=== PATIENT | female | born 1960 | race Caucasian/White ===

== ENCOUNTER 2020-05-21 08:02 | Emergency (ER) | payer OTHER, SELFPAY ==
[2020-05-21 08:25] VITALS: BP 98/74; PULSE 83; RESP 20; TEMP 36.7; O2SAT 99
--- NOTE | 2020-05-21 08:28 | ED.BACK ---
HPI - Back Pain/Injury General Chief Complaint: Back Pain/Injury Stated Complaint: Right hip pain Time Seen by Provider: 05/21/20 08:31 Source: patient Mode of arrival: ambulatory Limitations: no limitations History of Present Illness HPI Narrative: Jazmine Tello is a 59 yo female with diabetes, anxiety, high cholesterol, who comes to express care with complaints of right lower back pain that started last night after power washing deck for 2 hours. She states that she sat on the chair to rest and was almost unable to get up. Has used ice to her back to be able to get out of bed and move around this morning but pain is still there Related Data Home Medications Medication Instructions Recorded Confirmed ibuprofen 800 mg PO Q6H PRN 05/21/20 05/21/20 insulin degludec [Tresiba 20 unit SUBCUT HS 05/21/20 05/21/20 FlexTouch U-200] insulin glargine U-300 conc 50 unit SUBCUT DAILY 05/21/20 05/21/20 [Toujeo SoloStar U-300 Insulin] metformin 2,000 mg PO DAILY 05/21/20 05/21/20 semaglutide [Ozempic] 0.5 mg SUBCUT WEEKLY 05/21/20 05/21/20 sertraline 100 mg PO DAILY 05/21/20 05/21/20 simvastatin 20 mg PO DAILY 05/21/20 05/21/20 Allergies Allergy/AdvReac Type Severity Reaction Status Date / Time No Known Allergies Allergy Verified 05/21/20 08:47 Review of Systems Review of Systems: Narrative: CONSTITUTIONAL: Denies fever, chills, sweats. EYES: Denies visual changes, redness, discharge. ENT: Denies rhinorrhea, congestion, sore throat, otalgia. CARDIOVASCULAR: Denies chest pain, palpitations, edema. RESPIRATORY: Denies dyspnea, wheezing, cough GASTROINTESTINAL: Denies abdominal pain, nausea, vomiting, diarrhea. GENITOURINARY: Denies dysuria, hematuria, abnormal discharge SKIN: Denies rash or itching. NEUROLOGIC: Denies numbness, or focal weakness. PSYCHIATRIC: Denies anxiety or depression. Right lower back pain PMFSH Family History Family History Other Diabetes mellitus Social History Social History (Updated 05/21/20 @ 08:49 by LÓPEZ Silva Smoking status: Never smoker Alcohol intake: never Comments At time of signature, I agree with nursing past medical, surgical, social and family history. There is no relevant family history pertinent to the presenting complaint. Exam Narrative: Exam Narrative: GENERAL: This is a well-nourished, well-developed patient, in mild distress. HEAD: normocephalic, atraumatic. EYES: Sclera clear/white. Vision is grossly intact. EARS: External ears normal, Hearing grossly intact. NOSE: External nose normal without nasal discharge, THROAT: Not performed NECK: Neck supple, CARDIOVASCULAR: Regular rate and rhythm without murmurs, gallops, or rubs. RESPIRATORY: Clear to auscultation. Breath sounds equal bilaterally. No wheezes, rales, or rhonchi. GASTROINTESTINAL: Abdomen soft, SKIN: warm, intact with no suspicious lesions or rash, good texture and turgor. NEURO: awake, alert, and oriented to person, place and time. There were no obvious focal neurologic abnormalities. Steady gait EXTREMITIES: Normal range of motion. BACK:tender right lumbar area without deformity; pain on touch and with twisting Course Course Emergency Course: Given Toradol for pain in express care Discussed care of sciatica and started on muscle relaxant and high-dose ibuprofen; recommended use of the lidocaine patches if not improved within 5 days and to follow-up with primary care physician Vital Signs Vital signs: Vital Signs Temperature 98.0 F 05/21/20 08:25 Pulse Rate 83 05/21/20 08:25 Respiratory Rate 20 05/21/20 08:25 Blood Pressure 98/74 L 05/21/20 08:25 Pulse Oximetry 99 05/21/20 08:25 Temperature 98.0 F 05/21/20 08:25 Pulse Rate 83 05/21/20 08:25 Respiratory Rate 20 05/21/20 08:25 Blood Pressure 98/74 L 05/21/20 08:25 Pulse Oximetry 99 05/21/20 08:25 MDM - Back Pain/Injury Diffe
[2020-05-21] MEDS: KETOROLAC (*BKC) 60 MG/2 ML VIAL IM (08:45)
== END 2020-05-21 09:10 | disposition home or self-care (01) ==
PROVIDERS: Emergency Provider Nurse Practitioner; PCP Family Medicine
DX: M54.31 Sciatica, right side (principal); E11.9 Type 2 diabetes mellitus without complications; F41.9 Anxiety disorder, unspecified; Z79.1 Long term (current) use of non-steroidal anti-inflammatories (NSAID); Z79.4 Long term (current) use of insulin
CPT/HCPCS: 96372; 99213; G0463; J1885

== ENCOUNTER 2021-02-25 14:13 | Emergency (ER) | payer OTHER, SELFPAY ==
[2021-02-25 14:18] VITALS: BP 143/76; PULSE 86; RESP 20; TEMP 35.9; O2SAT 98
--- NOTE | 2021-02-25 14:18 | ED.EAR ---
HPI - Ear Problem General Chief complaint: Ear Stated complaint: right ear pain Time Seen by Provider: 02/25/21 14:18 Source: patient and RN notes reviewed History of Present Illness HPI Narrative: Patient is a 60-year-old female who presents the urgent care with complaints of right ear pain for 5 days. Patient states that she does typically get fluid behind the ears which is easily treated with her Zyrtec, Flonase and ibuprofen. Patient states it is continued to be a dull ache and she wanted to make sure she did not have an ear infection . Patient denies of any fever or other upper respiratory symptoms. No other acute complaints. No acute distress noted. Patient aware of the plan of care. Some parts of this dictation were generated by voice recognition software and may contain typographical and/or grammatical inaccuracies. Related Data Home Medications Medication Instructions Recorded Confirmed insulin degludec [Tresiba 20 unit SUBCUT HS 05/21/20 05/21/20 FlexTouch U-200] metformin 2,000 mg PO DAILY 05/21/20 05/21/20 sertraline 100 mg PO DAILY 05/21/20 05/21/20 atorvastatin 80 mg PO DAILY 02/25/21 02/25/21 empagliflozin [Jardiance] 25 mg PO DAILY 02/25/21 02/25/21 omeprazole 40 mg PO DAILY 02/25/21 02/25/21 Allergies Allergy/AdvReac Type Severity Reaction Status Date / Time No Known Allergies Allergy Verified 02/25/21 14:23 Review of Systems Review of Systems: Narrative: CONSTITUTIONAL: Denies fever, chills, or sweats. EYES: Denies visual changes, redness, or discharge. ENT: Reports of right ear pain/pressure. CARDIOVASCULAR: Denies chest pain, palpitations, or edema. RESPIRATORY: Denies cough or dyspnea. GASTROINTESTINAL: Denies abdominal pain, nausea, vomiting, or diarrhea. GENITOURINARY: Denies dysuria or hematuria. SKIN: Denies rash or itching. MUSCULOSKELETAL: Denies back pain, joint pain, or myalgia. NEUROLOGIC: Denies headache, numbness, or weakness. All other systems reviewed are negative, except as documented in HPI. [facility] Family History Family History Other Diabetes mellitus Social History Social History (Updated 05/21/20 @ 08:49 by Sis Muniz CNP) Smoking status: Never smoker Alcohol intake: never Comments At the time of my signature, I reviewed and agree with the nursing past medical, surgical, social, and family history. There is no relevant family history pertinent to the patient complaint. Exam Narrative: Exam Narrative: GENERAL: This is a well-nourished, well-developed patient, in no apparent distress. HEAD: normocephalic, atraumatic. EYES: PERRL. Sclera clear/white. Vision is grossly intact. EARS: External ears normal, auditory canals clear and without drainage, very mild fluid noted behind bilateral TMs without otitis. TMs normal without perforation. Hearing grossly intact. NOSE: External nose normal with no obvious nasal discharge, nares without redness, no rhinorrhea. THROAT: Mucous membranes moist, posterior pharynx clear. NECK: Neck supple CARDIOVASCULAR: Regular rate and rhythm without murmurs, gallops, or rubs. RESPIRATORY: Clear to auscultation. Breath sounds equal bilaterally. No wheezes, rales, or rhonchi. SKIN: warm, intact with no suspicious lesions or rash, good texture and turgor. NEURO: awake, alert, and oriented to person, place and time. There were no obvious focal neurologic abnormalities. EXTREMITIES: No clubbing, cyanosis, or edema. Course Vital Signs Vital signs: Vital Signs Temperature 96.7 F L 02/25/21 14:18 Pulse Rate 86 02/25/21 14:18 Respiratory Rate 20 02/25/21 14:18 Blood Pressure 143/76 H 02/25/21 14:18 Pulse Oximetry 98 02/25/21 14:18 Temperature 96.7 F L 02/25/21 14:29 Pulse Rate 86 02/25/21 14:29 Respiratory Rate 20 02/25/21 14:29 Blood Pressure 143/76 H 02/25/21 14:29 Pulse Oximetry 98 02/25/21 14:29 Reviewed-patient is informed that they ma
[2021-02-25 14:26] VITALS: BP 131/78; PULSE 104; RESP 16; TEMP 36.8; O2SAT 100
[2021-02-25 14:29] VITALS: BP 143/76; PULSE 86; RESP 20; TEMP 35.9; O2SAT 98
== END 2021-02-25 14:30 | disposition home or self-care (01) ==
PROVIDERS: Emergency Provider Nurse Practitioner Family; PCP Family Medicine
DX: H92.01 Otalgia, right ear (principal); E78.00 Pure hypercholesterolemia, unspecified; E11.9 Type 2 diabetes mellitus without complications; F41.9 Anxiety disorder, unspecified; F32.9 Major depressive disorder, single episode, unspecified
CPT/HCPCS: 99211; G0463